=== PATIENT | female | born 1955 | race Asian ===

== ENCOUNTER 2018-06-20 21:45 | Emergency (ER) | payer OTHER ==
[2018-06-20] MEDS ORDERED: CYCLOBENZAPRINE HCL 10 MG TABLET PO ONE (23:18)
[2018-06-20] MEDS ORDERED: KETOROLAC TROMETHAMINE 10 MG TABLET PO ONE (23:18)
[2018-06-20] MEDS ORDERED: IBUPROFEN 600 MG TABLET PO ONE (23:37)
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
--- NOTE | 2018-06-21 00:18 | EKG REPORT ---
SEVERITY:- ABNORMAL ECG - SINUS RHYTHM LEFT ANTERIOR FASCICULAR BLOCK : Confirmed by: Lacey Rodriguez MD 21-Jun-2018 00:17:14
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
[2018-06-21 00:50] VITALS: BP 122/74
== END 2018-06-21 00:40 | disposition home or self-care (01) ==
LOC: ER 21:45
DX: R07.9 Chest pain, unspecified (principal); M54.5 Low back pain; V89.2XXA Person injured in unspecified motor-vehicle accident, traffic, initial encounter; E78.00 Pure hypercholesterolemia, unspecified; I10 Essential (primary) hypertension; E11.9 Type 2 diabetes mellitus without complications
CPT/HCPCS: 71046; 93005; 93010; 99284